=== PATIENT | female | born 1940 | race Caucasian/White ===

== ENCOUNTER 2020-06-08 11:58 | Emergency (ER) | payer MEDICARE, SELFPAY ==
--- NOTE | 2020-06-08 12:17 | ECG_ITS ---
APPROVED REPORT Exam: Resting ECG HR:91 bpm ECG Measurements Heart Rate 91 AXES NC 192 P 57 QRSd 56 QRS 25 QT 368 T 61 QTc 452 Conclusion Normal sinus rhythm Low voltage QRS Septal infarct, age undetermined Abnormal ECG Electronically signed by : Migel Husain, 06/09/2020 07:32:22
[2020-06-08 12:30] VITALS: BP 138/94; PULSE 87; O2SAT 92
--- NOTE | 2020-06-08 12:31 | [facility].EDGENADL ---
ED Disposition Clinical Impression: Concussion Qualifiers: Encounter type: initial encounter Loss of consciousness presence/duration: with LOC of unspecified duration Qualified Code(s): S06.0X9A - Concussion with loss of consciousness of unspecified duration, initial encounter Scalp hematoma Qualifiers: Encounter type: initial encounter Qualified Code(s): S00.03XA - Contusion of scalp, initial encounter Disposition: Home, Self-Care Condition on Discharge: Good Instructions: DI for Closed Head Injury, DI for Concussion Additional Instructions: Dalton for pain. Ice to scalp 20 minutes 4-5 times a day for swelling. Additional instructions for HEAD INJURY: See your physician as soon as possible for further evaluation. Return immediately if severe headache, vomiting, problems with vision or speech, numbness or weakness of the extremities, or severe neck pain. Additional instructions for CONTROLLED SUBSTANCES: You have been prescribed a medication that is a controlled substance. Controlled substances include pain medications known as opiates and sedative nerve medications known as benzodiazepines. Tramadol, fioricet, and gabapentin are also controlled substances. Some common opiates include: Codeine (such as Tylenol #3) Hydrocodone (Vicodin, Lortab, Lorcet, Dalton) Oxycodone (Percocet, Percodan, Oxycodone, Oxy IR) Some common benzodiazepines include: Diazepam (Valium) Lorazepam (Ativan) Alprazolam (Xanax) Clonazepam (Klonopin) Oxazepam (Serax) All of these controlled substances are highly addictive and frequently abused. Misuse can and frequently does lead to addiction as well as overdose and . Medication should be stored in a locked cabinet or other secure storage unit. Do not store the medication in a motor vehicle. Short term supplies, 3 days or less, are prescribed because of the highly addictive nature of the medication. Any of the controlled substance medication NOT taken should be disposed of properly and NOT SAVED. The recommended method of disposing of unused medications is: Place the medicines in a sealable plastic bag. If the medicine is a solid, crush it or add water to dissolve it. Add something undesirable (cat litter, coffee grounds, etc.) Dispose of sealed bag in household trash Do not flush or pour unused medicines down a sink or drain. Controlled substances should not be shared, given away or sold. Because of the addictive nature and frequent abuse, these medications are sometimes stolen. These medications should be kept in a safe place where they cannot be stolen. Do not keep them in your car or purse. Lost or stolen prescriptions for controlled substances WILL NOT BE REFILLED in this emergency department, regardless of whether a police report was filed. Prescriptions: Hydrocod/Acet 5/325 mg [Dalton 5/325mg tablet] 1 tab PO Q6HP PRN #6 tab PRN Reason: Pain Transmission Status: [facility] Referrals: Paul Madison [Primary Care Provider] - - Critical Care Critical Care Time: No Attestation: On , the high probability of a clinically significant, sudden or life threatening deterioration of the following system(s) required my full and direct attention, intervention and personal management. The time I documented below is in addition to time spent performing reported procedures but includes the following listed in this critical care notation. Medical Decision Making - [place] Inquiry Pt receiving controlled substance: Yes [place] was queried for this patient: Yes Risks and benefits of using a controlled substance: were discussed with pt by me Vital Signs: 06/08/20 12:30 06/08/20 12:32 06/08/20 12:37 Temperature 97.8 F Temperature Source Oral Pulse Rate 87 84 Pulse Rate [Left Radial] 94 H Respiratory Rate 18 Blood Pressure 138/94 H 130/84 Blood Pressure [Right Arm] 150/116 H Blood Pressure Mean [Right Arm] 127 Blood Pressure So
[2020-06-08 12:32] VITALS: BP 150/116; PULSE 94; RESP 18; TEMP 36.6; O2SAT 93; BMI 33.8
--- NOTE | 2020-06-08 12:36 | XR_ITS ---
PROCEDURE INFORMATION: Exam: XR Chest Exam date and time: 06/08/2020 12:36 PM Age: 79 years old Clinical indication: Injury or trauma; Fall; Blunt trauma (contusions or hematomas); Additional info: Dizziness TECHNIQUE: Imaging protocol: XR of the chest. Views: 2 views. COMPARISON: No relevant prior studies or reports available. FINDINGS: Lungs: Focal subsegmental atelectasis at the left base. Hypoventilation on the frontal view, though lungs appear well inflated on the lateral view. Central bronchovascular crowding and slight peribronchial thickening. No focal consolidation. Pleural spaces: Unremarkable. No significant pleural effusion. No pneumothorax. Heart/Mediastinum: Cardiac silhouette mildly enlarged. Vasculature: Tortuous aorta. Bones/joints: Spinal degenerative changes, multilevel disc narrowing and spondylosis. No definite or displaced rib fracture seen on this limited exam. IMPRESSION: 1. Cardiomegaly. 2. Mild subsegmental atelectasis at the left base, slightly elevated left diaphragm with left lower pulmonary volume loss. 3. Slight peribronchial thickening, which could be minimal vascular congestion or bronchitis. No focal consolidation. 4. Additional nonemergency and chronic findings as above.
[2020-06-08 12:37] VITALS: BP 130/84; PULSE 84; O2SAT 92
--- NOTE | 2020-06-08 12:37 | CT_ITS ---
PROCEDURE INFORMATION: Exam: CT Head Without Contrast Exam date and time: 06/08/2020 12:37 PM Age: 79 years old Clinical indication: Injury or trauma; Fall; Blunt trauma (contusions or hematomas); Additional info: Injury/fall TECHNIQUE: Imaging protocol: Computed tomography of the head without contrast. Radiation optimization: All CT scans at this facility use at least one of these dose optimization techniques: automated exposure control; mA and/or kV adjustment per patient size (includes targeted exams where dose is matched to clinical indication); or iterative reconstruction. COMPARISON: No relevant prior studies available. FINDINGS: Brain: Prominent sulci. Patchy hypodensity of the cerebral white matter which are nonspecific but likely secondary to microangiopathic changes. Cerebral ventricles: The ventricles are prominent secondary to diffuse volume loss/atrophy. Bones/joints: Unremarkable. No acute fracture. Paranasal sinuses: Partial opacification of the frontal sinuses and small air-fluid level in the right maxillary sinus and mild mucoperiosteal thickening remainder of paranasal sinuses. Mastoid air cells: Visualized mastoid air cells are well aerated. Soft tissues: Moderate to marked high right parietal soft tissue swelling/soft tissue hematoma. IMPRESSION: 1. Moderate to marked high right parietal soft tissue swelling/soft tissue hematoma and age related changes but no evidence of acute intracranial pathology. 2. Partial opacification of the frontal sinuses and small air-fluid level in the right maxillary sinus and mild mucoperiosteal thickening remainder of paranasal sinuses.
--- NOTE | 2020-06-08 12:39 | CT_ITS ---
PROCEDURE INFORMATION: Exam: CT Cervical Spine Without Contrast Exam date and time: 06/08/2020 12:39 PM Age: 79 years old Clinical indication: Injury or trauma; Fall; Blunt trauma; Additional info: Head injury TECHNIQUE: Imaging protocol: Computed tomography images of the cervical spine without contrast. Radiation optimization: All CT scans at this facility use at least one of these dose optimization techniques: automated exposure control; mA and/or kV adjustment per patient size (includes targeted exams where dose is matched to clinical indication); or iterative reconstruction. COMPARISON: No relevant prior studies available. FINDINGS: Bones/joints: No acute fracture. Normal alignment. Discs/Spinal canal/Neural foramina: Mild right neuroforaminal narrowing C2-C3 and moderate left C3-C4 and mild bilateral C4-C7. Moderate to marked disc space narrowing C4-C7 with small anterior and posterior osteophytes. Sinuses: Partial opacification of the visualized paranasal sinuses. Lungs: Lung apices are normal. Soft tissues: Unremarkable. IMPRESSION: No evidence of cervical spine fracture. Remainder of findings as described above.
[2020-06-08 12:44] LABS: Basophils # 0.1 K/mm3 (0-0.2); Basophils % 0.6 % (0.1-2.0); Eosinophils # 0.1 K/mm3 (0.0-0.4); Eosinophils % 1.8 % (0.1-12.0); Hematocrit 47.5 % (37.0-47.0); Hemoglobin 14.9 g/dL (12.2-16.2); Lymphocytes # 1.8 K/mm3 (0.7-4.5); Lymphocytes % 23.5 % (10-50); Mean Corpuscular HGB Conc 31.3 g/dL (31.8-35.4); Mean Corpuscular Volume 92.5 fl (81-99); Mean Platelet Volume 7.3 fl (7.4-10.4); Monocytes # 0.3 K/mm3 (0.1-1.0); Monocytes % 3.9 % (1.7-9.3); Neutrophils # 5.5 K/mm3 (1.8-7.8); Neutrophils % 70.2 % (37.0-80.0); Platelet Count 284 K/mm3 (142-424); Red Blood Count 5.13 M/mm3 (4.20-5.40); White Blood Count 7.8 K/mm3 (4.8-10.8)
[2020-06-08 12:46] LABS: Chloride 104 mmol/L (98-107); Sodium 139 mmol/L (136-145)
[2020-06-08 12:49] LABS: Alanine Aminotransferase 17 U/L (12-78); Albumin Level 4.4 g/dl (3.5-5.0); Albumin/Globulin Ratio 1.4 (1.1-1.8); Alkaline Phosphatase 92 U/L (38-126); Aspartate Amino Transferase 26 U/L (14-36); Bilirubin,Total 0.4 mg/dl (0.2-1.3); Blood Urea Nitrogen 15 mg/dl (7-17); Carbon Dioxide 29 mmol/L (22.0-30.0); Creatinine Clearance Estimated 61 mL/min (50-200); Estimated Glomerular Filt Rate 81 ml/min (>60); GFR (African American) 98 ML/MIN (>60); Globulin 3.1 g/dL (1.3-3.2); Total Protein,Serum 7.5 g/dl (6.3-8.2)
[2020-06-08 12:50] LABS: Calcium 9.3 mg/dl (8.4-10.2); Glucose 136 mg/dl (74-100)
[2020-06-08 12:51] LABS: Ethyl Alcohol < 10 mg/dl (0-10)
[2020-06-08 13:06] LABS: Troponin I < 0.01 ng/ml (0.00-0.034)
[2020-06-08 13:31] VITALS: BP 123/78; PULSE 81; O2SAT 84
[2020-06-08 14:01] VITALS: BP 122/77; PULSE 87; O2SAT 88
[2020-06-08 14:35] VITALS: BP 122/77; PULSE 84; RESP 18; TEMP 37; O2SAT 99
== END 2020-06-08 14:46 | disposition home or self-care (01) ==
PROVIDERS: Emergency Provider Emergency Medicine; PCP Family Medicine
DX: S06.0X9A Concussion with loss of consciousness of unspecified duration, initial encounter (principal); W01.0XXA Fall on same level from slipping, tripping and stumbling without subsequent striking against object, initial encounter; Y92.480 Sidewalk as the place of occurrence of the external cause
CPT/HCPCS: 70450; 71046; 72125; 80053; 84484; 85025; 93005; 96374; 96375; 99283; J2405